=== PATIENT | female | born 1965 | race African-American/Black ===

== ENCOUNTER → 2017-12-01 | Outpatient (CLI) | payer BC ==
[~2017-12-01] MED LIST: ALBUTEROL INHAL17 GM IH; CLIMARA 0.00.0375 MG; EC-NAPROSYN500 M1 PO; FLONASE 0.05%50 MCG NASAL; IBUPROFEN 800800 MG PO; MUCINEX DM ER1 EACH PO; MUCINEX600 MG; NORCO 5-325 TA1 EACH PO; PHENERGAN 25 MG25 M1 PO; PROMETHAZINE/C118 ML PO; TYLENOL COLD H1 EACH PO; ZPAK PO; ZYRTEC
== END ==
LOC: RAD 14:30
DX: Z12.31 Encounter for screening mammogram for malignant neoplasm of breast (principal)

== ENCOUNTER → 2019-01-10 | Outpatient (CLI) | payer BC, OTHER | LOC: BC 14:50 | DX: Z12.31 Encounter for screening mammogram for malignant neoplasm of breast (principal) ==